=== PATIENT | female | born 1930 | race Caucasian/White ===

== ENCOUNTER 2017-09-26 13:24 | Observation (INO) | payer OTHER ==
[~2017-09-26] VITALS: Ht 160 cm; Wt 50.4 kg
--- NOTE | 2017-09-26 15:01 | DIAGNOSTIC IMAGING REPORT ---
CHEST ONE VIEW PORTABLE CLINICAL HISTORY: Altered mental status. Weakness. COMPARISON STUDY: No previous studies for comparison. FINDINGS: Lung volumes are normal. There is no pneumothorax or pleural effusion. Pulmonary vascularity is normal. Linear bibasilar opacities suggest subsegmental atelectasis. There is no dilatation to suggest pneumonia. Cardiomediastinal silhouette is unremarkable. IMPRESSION: No acute cardiopulmonary findings. Electronically signed by: Axel Vargas M.D. 09/26/2017 3:00 PM Dictated Date/Time: 09/26/2017 2:59 PM
[2017-09-26 15:10] LABS: BASO % 0.5 %; BASO ABS # 0.03 K/uL (0-0.2); COMPLETE YES; EOS % 0.6 %; HEMATOCRIT 32.6 % (37-47); IG% 0.2 %; LYMPH % 26.7 %; LYMPH ABS # 1.69 K/uL (1.2-3.4); MEAN CORPUSCULAR HGB CONC 33.7 g/dl (32-36); MEAN PLATELET VOLUME 8.6 fL (7.4-10.4); MONO % 9.6 %; NEUT % 62.4 %; PLATELET COUNT 270 K/uL (130-400); RED BLOOD COUNT 3.79 M/uL (4.2-5.4); WHITE BLOOD COUNT 6.34 K/uL (4.8-10.8)
[2017-09-26 15:20] LABS: PARTIAL THROMBOPLASTIN RATIO 0.9; PROTHROMBIN TIME (PATIENT) 10.6 SECONDS (9.0-12.0)
[2017-09-26 15:31] LABS: ALT/SGPT 36 U/L (12-78); BLOOD UREA NITROGEN 14 mg/dl (7-18); BUN/CREATININE RATIO 22.2 (10-20); CALCIUM 9.1 mg/dl (8.5-10.1); CARBON DIOXIDE 26 mmol/L (21-32); CHLORIDE 96 mmol/L (98-107); CREATININE 0.64 mg/dl (0.60-1.20); GLUCOSE 99 mg/dl (70-99); POTASSIUM 4.1 mmol/L (3.5-5.1); SODIUM 130 mmol/L (136-145)
[2017-09-26 15:36] LABS: MANUAL MICROSCOPIC REQUIRED? NO; REVIEW REQ? YES; URINE APPEARANCE CLEAR (CLEAR); URINE BILIRUBIN NEG (NEG); URINE COLOR YELLOW; URINE NITRITE NEG (NEG); URINE SPECIFIC GRAVITY 1.018 (1.000-1.030); UROBILINOGEN NEG (NEG); ZZUR CULT IF INDIC CLEAN CATCH YES
[2017-09-26 15:41] LABS: ACETAMINOPHEN < 2 ug/ml (10-30)
[2017-09-26 15:52] LABS: ALKALINE PHOSPHATASE 87 U/L (45-117); AST/SGOT 20 U/L (15-37); CKMB/CK RATIO 3.1 (0-3.0)
[2017-09-26] MEDS ORDERED: ACET325T96 PO (16:29)
[2017-09-26] MEDS ORDERED: ALUMSUS PO (16:29)
[2017-09-26] MEDS ORDERED: OXCA150T2 PO (16:29)
[2017-09-26] MEDS ORDERED: ATOR10TA82 PO (16:29)
[2017-09-26] MEDS ORDERED: LISI-729 PO (16:29)
[2017-09-26] MEDS ORDERED: MOML PO (16:29)
[2017-09-26] MEDS ORDERED: METH1TAB3 PO (16:29)
[2017-09-26] MEDS ORDERED: LORAZEPAM 2 MG/ML 1 ML VIAL IV STA (17:24)
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
[2017-09-26] MEDS ORDERED: ONDANSETRON INJ 2 MG/ML 2 ML VIAL IV PRN (18:00)
[2017-09-26] MEDS ORDERED: ACETAMINOPHEN 325 MG TAB PO PRN (18:00)
[2017-09-26] MEDS ORDERED: ASPIRIN 325 MG ECTAB PO STA (18:19)
[2017-09-26 18:38] VITALS: BP 134/58; PULSE 73; TEMP 36.8; O2SAT 97
[2017-09-26 18:43] VITALS: BP 134/58; PULSE 73; TEMP 36.8; O2SAT 97; Ht 160 cm; Wt 50.4 kg
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
[2017-09-26] MEDS: OXCARBAZEPINE 150 MG TAB PO SCH (20:57)
[2017-09-26] MEDS ORDERED: IV FLUIDS COMPLETED PRN (21:15)
[2017-09-26 22:56] VITALS: BP 111/57; PULSE 68; TEMP 36.7; O2SAT 97
[2017-09-27] VITALS (7 sets, daily range): BP systolic 107–168; BP diastolic 54–67; PULSE 64–72; TEMP 36.3–36.7; O2SAT 93–98
[2017-09-27 05:46] LABS: HEMATOCRIT 32.1 % (37-47); MEAN CELL VOLUME 87.5 fL (80-100); MEAN CORPUSCULAR HEMOGLOBIN 28.6 pg (25-34); MEAN CORPUSCULAR HGB CONC 32.7 g/dl (32-36); MEAN PLATELET VOLUME 8.5 fL (7.4-10.4); PLATELET COUNT 238 K/uL (130-400); RED BLOOD COUNT 3.67 M/uL (4.2-5.4); WHITE BLOOD COUNT 5.73 K/uL (4.8-10.8)
[2017-09-27 06:19] LABS: BUN/CREATININE RATIO 21.5 (10-20); CREATININE 0.76 mg/dl (0.60-1.20); POTASSIUM 4.3 mmol/L (3.5-5.1)
[2017-09-27] MEDS: ATORVASTATIN 10 MG TAB PO SCH (11:11)
[2017-09-27] MEDS: ASPIRIN 81 MG ECTAB PO SCH (11:11)
[2017-09-27] MEDS: OXCARBAZEPINE 150 MG TAB PO SCH ×2 (11:11→21:36)
[2017-09-27] MEDS: LISINOPRIL 5 MG TAB PO SCH (11:12)
[2017-09-27] MEDS: ENOXAPARIN 40 MG/0.4 ML SYR SQ SCH (11:13)
--- NOTE | 2017-09-27 12:12 | Hospitalist Progress Note ---
Hospitalist Progress Note Date of Service Sep 27, 2017. Subjective Patient seen and examined. Much more alert and oriented today. Reports, "I was very angry last night and did not want to stay here." No complaints. Objective Vital Signs Date Time Temp Pulse Resp B/P (MAP) Pulse Ox O2 Delivery O2 Flow Rate FiO2 09/27/17 11:35 36.6 69 20 132/66 (88) 97 09/27/17 08:00 95 Room Air 09/27/17 06:58 36.5 68 20 136/64 (88) 95 Room Air 09/27/17 05:28 36.7 64 16 107/54 (71) 93 Room Air 09/27/17 04:00 Room Air 09/26/17 23:55 Room Air 09/26/17 22:56 36.7 68 16 111/57 (75) 97 Room Air 09/26/17 18:43 36.8 73 18 134/58 97 Room Air 09/26/17 18:38 36.8 73 18 134/58 (83) 97 Room Air 09/26/17 17:43 69 20 168/86 95 Room Air 09/26/17 16:55 99 20 176/83 95 Room Air 09/26/17 14:38 86 20 153/90 96 Room Air 09/26/17 13:47 Room Air 09/26/17 13:41 79 09/26/17 13:39 36.9 78 20 140/84 97 Room Air Physical Exam General Appearance: WD/WN, no apparent distress Respiratory/Chest: lungs clear, normal breath sounds, no respiratory distress Cardiovascular: regular rate, rhythm, no edema Abdomen: normal bowel sounds, non tender, soft Neurologic/Psychiatric: no motor/sensory deficits, alert, oriented x 3 Skin: normal color, warm/dry Laboratory Results Item Value Date Time Troponin I 0.169 ng/ml *H 09/26/17 1454 Troponin I 0.498 ng/ml *H 09/26/172000 Troponin I 0.386 ng/ml *H 09/27/17 0152 Sodium Level 129 mmol/L L 09/27/17 0522 Blood Urea Nitrogen 16 mg/dl 09/27/17 0522 Creatinine 0.76 mg/dl 09/27/17 0522 White Blood Count 5.73 K/uL 09/27/17 0522 Hemoglobin 10.5 g/dL L 09/27/17521 Hematocrit 32.1 % L 09/27/17521 Platelet Count 238 K/uL 09/27/17521 Assessment and Plan ELEVATED TROPONIN - patient presenting from [facility] for evaluation of manic and aggressive behavior; incidentally found to have a mildly elevated troponin - no reports of chest pain (however consider patient poor historian): EKG without acute ST changes - consider stress induced due to patient's extreme mood swings, anxiety, aggression - received full dose ASA; now on 81mg daily; continue statin - trop 0.169 -> 0.498 -> 0.386 - echo pending - cardio consulted, awaiting recommendations DELUSIONS, AGGRESSIONS, HX OF DEMENTIA - much improvement in mood today - recent admission to [facility] and was placed on Trileptal - was on Aricept for a few days however was discontinued by Dr. Betancur (patient's neurologist) - mental health consult HTN - BP controlled, continue Lisinopril HYPONATREMIA - mild, likely due to Trileptal - continue to monitor for now - consider fluid restriction DYSLIPIDEMIA - continue statin DVT PROPHYLAXIS - SCDs due to bleeding risk / injury from patient's aggressive behavior CODE STATUS - Patient is a DNR as per half-way documentation. DISPO - pending - awaiting mental health recommendations - return to [facility] vs. inpatient geriatric psych
--- NOTE | 2017-09-27 13:30 | Psychiatric Consultation ---
Consultation Date of Consultation Sep 27, 2017. Identifying Data Belkys Duran is an 87-year-old woman who was brought to the ED after having a behavioral episode at the halfway, [facility]. We are consulted to evaluate dementia and depression. Information is gathered from the patient, the electronic medical record, and daughter Sheela by phone. Chief Complaint "I get confused on things". History of Present Illness The patient is a 87-year-old woman who is generally quite healthy. She has lived in her own home until the middle of August. 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 The family had noticed that mother's memory had been declining, calling them sometimes 3 times a day not having remembered that she already called. Their mother would get confused about whether or not she worked and what her schedule was. The day after mother called to say that she was retiring, the patient evidently did not remember saying that and went to work. Her employer then called the daughter Sheela to say mother was at work, was appearing confused, not remembering that she retired. Sheela went to the patient's home then to talk with her, realized that she was confused, forgetting many details. She did not feel like she could leave her alone and so called can help for some assistance. They sent a mobile worker out to the home which only agitated the patient. It sounds as if the patient got paranoid, that the family and this galley worker were making up lies about her. The patient became aggressive reaching out to grab papers and the galley worker. This ultimately resulted in a 302 petition, and a police escort to [facility]. From there the patient was sent to [facility] where she stayed for a week. They placed her on Trileptal and said that she demonstrated no more aggressive behaviors while she was there. The patient was then sent to [facility] which was the children's choice for facilities feeling that she could have her own apartment and some freedom to come and go. Sheela says that her mother has always had trouble with change, and is very rigid and obsessive in her own thinking. She describes her mother as judgmental of others especially others with medical conditions in view of the fact that Belkys herself has been very healthy all of her life. The patient was clearly unhappy in the move, making many complaints about the environment. The daughters were worried she would try to elope which would result in the patient not being allowed to return to [facility]. Sheela went to visit her mother yesterday. Her mother was anxious, asking to leave. The patient then stiffened her entire body, grabbing at her pants, banging her head on the back of the chair saying that she wanted to . She would not be consoled. At that point she was brought to our emergency room. Sheela also notes that the patient has seen Dr. Andrews in the past, diagnosed with dementia, recently recommended to start Aricept which she did for only a very brief period of time. Over the years, Sheela says that mother has been recommended to try antidepressants however she never took them but did use Ativan and Valium at times. At the time I see the patient she is seated in her bed. She is alert and cooperative with the interview. She is well groomed and attentive. She has trouble describing a timeline of events. Generally she is able to say that she retired recently, that her children had been concerned about her living alone and so she agreed to go to [facility] where she is now desperately unhappy. The patient has very poor memory for going to [facility] or any behaviors that may have led to that. The focus of her conversation today has to do with the fact that she has led a full and active life, living independently even after her 17 years ago. She acknowledges she has memory problems but feels that there was a dramatic switch when she went to [facility] where she is now surrounded by people who are infirm, whom she does not want to be around. She is able to say that it was this distress that led her to her behavioral decompensation yesterday with her daughter. Belkys says she felt that if she had to live in these circumstances the rest of her days that she would rather be , wishing the Lord to take her. She denies having any active suicidal thoughts plan or intent. The patient herself says that she denies suicidal thinking. She reports good sleep. She reports good appetite although the daughter said that when he went into her home, her refrigerator had moldy food on it and they report a recent 5 pound weight loss. The patient herself denies any auditory or visual hallucinations. Daughter Sheela reports a paranoid theme. Sheela also notes that she has observed her mother to have panic attacks in the past. She has always had some odd behaviors, including taking copious notes and at time of admission, was found to have notes in her socks. Past Psychiatric History Current OP Treatment: no current treatment Prior OP Treatment: no prior treatment Prior Psych Hospitalizations: none Access to a Gun: No Suicide Attempts: No Past Medication Trials Ativan, Valium, multiple antidepressants that she did not take Past Medical/Surgical History History of Concussion/Seizure: No (1) Dyslipidemia (2) HTN (hypertension) (3) Dementia Allergies Allergies: Coded Allergies: Penicillins (Verified Allergy, Unknown, UNKNOWN, 09/26/17) Home Medications Scheduled Atorvastatin (Lipitor), 10 MG PO DAILY Lisinopril (Prinivil), 5 MG PO DAILY Methenamine Mandelate (Methenamine Mandelate), 1 GM PO DAILY Oxcarbazepine (Trileptal), 150 MG PO BID Scheduled PRN Acetaminophen Tab (Tylenol), 650 MG PO Q4 PRN for Pain or Fever Alum & Mag Hydrox-Simethicone (Mi-Acid), 30 ML PO Q4 PRN for Nausea Magnesium Hydroxide (Milk Of Magnesia), 30 ML PO DAILY PRN for Constipation Family History History of Suicide: No History of Substance Abuse: No Psychiatric History: No Brother with Parkinson's disease Alcohol Use Alcohol Use In Past 12 Months: No Smoking Use Smoking Status: Never Smoker Substance History None Personal History Lives in: [facility] Relationship History: Children: 2 daughters and 1 son Legal History: none Psychological Trauma History: Denies Hx Traumatic Event Review of Systems Constitutional: other (admits to poor memory) Eyes: denies: no symptoms, as stated in HPI, eye pain, tearing, itching, redness, discharge, double vision, visual changes, blurred vision, photophobia, other ENT: denies: no symptoms reported, see HPI, ear pain, ear discharge, loss of hearing, tinnitus, nasal pain, nasal congestion, rhinorrhea, epistaxis, sore throat, stidor, throat swelling, mouth pain, mouth swelling, dental pain, gum swelling, other Cardiovascular: denies: no symptoms reported, see HPI, chest pain, chest tightness, chest pressure, diaphoresis, palpitations, syncope, other Respiratory: denies: no symptoms reported, see HPI, cough, orthopnea, short of breath, stridor, wheezing, sputum production, cyanosis, BARRON, PND, other Gastrointestinal: denies no symptoms reported, denies see HPI, denies abdominal pain, denies constipation, denies diarrhea, denies nausea, denies vomiting, denies other Genitourinary - Female: denies: no symptoms, see HPI, rash, amenorrhea, dysmenorrhea, menorrhagia, metrorrhagia, , vaginal bleeding, vaginal itching, vaginal discharge, vulvadynia, other Musculoskeletal: denies no symptoms reported, denies see HPI, denies back pain , denies gout, denies joint pain, denies joint swelling, denies muscle pain, denies muscle stiffness, denies neck pain, denies other Integumentary: denies no symptoms reported, denies see HPI, denies change in color, denies change in hair/nails, denies dryness, denies lesions, denies lumps , denies rash, denies other Neurologic: denies: no symptoms, see HPI, headache, numbness, paresthesias, pre -existing deficit, seizure, tingling, tremors, general weakness, tics, focal weakness, vertigo, lethargy, memory loss, dizziness, other Endocrine: denies: no symptoms, as stated in HPI, cold intolerance, heat intolerance, hair changes, goiter, polydipsia, polyuria, skin changes, other Hematologic / Lymphatic: denies: no symptoms, as stated in HPI, abnormal clotting, adenopathy, anemia, easy bleeding, easy bruising, gums bleeding, petechiae, other Examination Physical Examination As per Blanca ABBOTT Vital Signs Vital Signs Past 12 Hours Date Time Temp Pulse Resp B/P (MAP) Pulse Ox O2 Delivery O2 Flow Rate FiO2 09/27/17 11:35 36.6 69 20 132/66 (88) 97 09/27/17 08:00 95 Room Air 09/27/17 06:58 36.5 68 20 136/64 (88) 95 Room Air 09/27/17 05:28 36.7 64 16 107/54 (71) 93 Room Air 09/27/17 04:00 Room Air Laboratory Results Last 24 Hours Test 09/26/17 14:54 09/26/17 15:15 09/26/17 15:39 09/26/17 20:01 White Blood Count 6.34 K/uL Red Blood Count 3.79 M/uL Hemoglobin 11.0 g/dL Hematocrit 32.6 % Mean Corpuscular Volume 86.0 fL Mean Corpuscular Hemoglobin 29.0 pg Mean Corpuscular Hemoglobin Concent 33.7 g/dl Platelet Count 270 K/uL Mean Platelet Volume 8.6 fL Neutrophils (%) (Auto) 62.4 % Lymphocytes (%) (Auto) 26.7 % Monocytes (%) (Auto) 9.6 % Eosinophils (%) (Auto) 0.6 % Basophils (%) (Auto) 0.5 % Neutrophils # (Auto) 3.96 K/uL Lymphocytes # (Auto) 1.69 K/uL Monocytes # (Auto) 0.61 K/uL Eosinophils # (Auto) 0.04 K/uL Basophils # (Auto) 0.03 K/uL RDW Standard Deviation 43.5 fL RDW Coefficient of Variation 13.7 % Immature Granulocyte % (Auto) 0.2 % Immature Granulocyte # (Auto) 0.01 K/uL Prothrombin Time 10.6 SECONDS Prothromb Time International Ratio 1.0 Activated Partial Thromboplast Time 23.3 SECONDS Partial Thromboplastin Ratio 0.9 Sodium Level 130 mmol/L Potassium Level 4.1 mmol/L Chloride Level 96 mmol/L Carbon Dioxide Level 26 mmol/L Anion Gap 8.0 mmol/L Blood Urea Nitrogen 14 mg/dl Creatinine 0.64 mg/dl Estimated GFR () 93.6 Estimated GFR (Non- 80.8 BUN/Creatinine Ratio 22.2 Random Glucose 99 mg/dl Calcium Level 9.1 mg/dl Magnesium Level 2.0 mg/dl Total Bilirubin 0.5 mg/dl Direct Bilirubin 0.2 mg/dl Aspartate Amino Transf (AST/SGOT) 20 U/L Alanine Aminotransferase (ALT/SGPT) 36 U/L Alkaline Phosphatase 87 U/L Total Creatine Kinase 35 U/L Creatine Kinase MB 1.1 ng/ml 1.8 ng/ml Creatine Kinase MB Ratio 3.1 Troponin I 0.169 ng/ml 0.498 ng/ml Total Protein 7.0 gm/dl Albumin 3.6 gm/dl Lipase 143 U/L Thyroid Stimulating Hormone (TSH) 1.820 uIu/ml Salicylates Level < 1.7 mg/dl Acetaminophen Level < 2 ug/ml Urine Color YELLOW Urine Appearance CLEAR Urine pH 7.0 Urine Specific Robertson 1.018 Urine Protein NEG Urine Glucose (UA) NEG Urine Ketones NEG Urine Occult Blood NEG Urine Nitrite NEG Urine Bilirubin NEG Urine Urobilinogen NEG Urine Leukocyte Esterase SMALL Urine WBC (Auto) 10-30 /hpf Urine RBC (Auto) 10-30 /hpf Urine Hyaline Casts (Auto) 1-5 /lpf Urine Epithelial Cells (Auto) 10-20 /lpf Urine Bacteria (Auto) NEG Urine Yeast (Auto) Ethyl Alcohol mg/dL < 3.0 mg/dl Test 09/27/17 01:52 09/27/17 05:22 Creatine Kinase MB 1.7 ng/ml Creatine Kinase MB Ratio Troponin I 0.386 ng/ml White Blood Count 5.73 K/uL Red Blood Count 3.67 M/uL Hemoglobin 10.5 g/dL Hematocrit 32.1 % Mean Corpuscular Volume 87.5 fL Mean Corpuscular Hemoglobin 28.6 pg Mean Corpuscular Hemoglobin Concent 32.7 g/dl RDW Standard Deviation 44.7 fL RDW Coefficient of Variation 13.9 % Platelet Count 238 K/uL Mean Platelet Volume 8.5 fL Sodium Level 129 mmol/L Potassium Level 4.3 mmol/L Chloride Level 98 mmol/L Carbon Dioxide Level 30 mmol/L Anion Gap 1.0 mmol/L Blood Urea Nitrogen 16 mg/dl Creatinine 0.76 mg/dl Est Creatinine Clear Calc Drug Dose 43.9 ml/min Estimated GFR () 82.3 Estimated GFR (Non- 71.0 BUN/Creatinine Ratio 21.5 Random Glucose 82 mg/dl Calcium Level 9.0 mg/dl Mental Examination During interview pt is: cooperative (disoriented to place and month day and date) Appearance: appropriately dressed, appropriately groomed Eye contact is: good Motor behavior is: tremor (mild) Speech: normal in rate, rhythm & volume Affect: tearful, anxious Mood is: depressed, anxious Thought process: goal directed Thought content: reality based without delusions (but with memory impairment) Suicidal thought are: denied (had made statements of wanting to , wanting God to take her but denies active SI) Homicidal thoughts are: denied Hallucinations: denies auditory, denies visual Cognition: attention grossly intact, language grossly intact Intelligence estimated to be: average Insight: impaired Judgement: impaired Impression / Recommendations Impression 87-year-old woman who has been in deterioration over the course of the last several weeks. She is admitted to our facility after having a behavioral episode at [facility] in which she was poorly responsive and acting bizarrely making suicidal statements. I certainly agree she's got significant memory impairment although I'm not sure whether there is any benefit to adding Aricept or Namenda at this point given her age. Her daughter describes a lifelong pattern of anxiety and anxiety related behaviors and I do think it's worth a trial of an SSRI, Lexapro 5 mg daily, which the patient indicated she would be willing to try. Her periods of agitation are not consistent and today is quite cooperative with islands of intact cognition. At her age it would like to avoid starting an atypical antipsychotic given the potential side effects. Ideally, the patient would be allowed an opportunity to remain in her own home with 24 7 support, however daughter hSeela says this is not financially possible. Sheela is concerned that the patient will require a higher level of care, specifically locked memory care unit, and I have suggested to her that she talk with social service about that. I don't think we can dismiss the patient's reports about her unhappiness in a facility where there are lots of sick people around her that she cannot relate to. Unfortunately there is not much we can do to change that and the patient may need more time to acclimate. She is not a candidate for inpatient mental health treatment given that her primary diagnosis is that of dementia, and not a primary mental illness. Recommendations (1) neurocognitive disorder with behavioral disturbance 09/27 - start Lexapro 5 mg daily to target mood and chronic anxiety -Behavior is not consistently aggressive or bizarre and so I do not recommend starting an atypical antipsychotic at this point given her age and potential side effects - She is not a candidate for inpatient mental health treatment given her primary diagnosis of dementia Has been reviewed with Dr. Sulma Irwin
--- NOTE | 2017-09-27 14:27 | CARDIOLOGY CONSULTATION ---
DATE OF CONSULTATION: 09/27/2017 DATE OF CONSULTATION: 09/27/2017 REFERRING PHYSICIAN: Dr. Mckenzie Galaviz. REASON FOR CONSULTATION: Elevated troponin. CHIEF COMPLAINT ON ADMISSION: Mental health evaluation. HISTORY OF PRESENT ILLNESS: Ms. Duran is an 87-year-old female who is a poor historian. She was sent to the Emergency Department from [facility] due to worsening anxiety and depression over the past 3 months. The patient states I "had a fit" last night. She states she left things build up and then eventually she became quite angry and frustrated. There is a chart history of worsening confusion. The patient seems to be confused as to where she resides at this time. She believes she is still living at home. 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 She was recently diagnosed with Alzheimer dementia. Started on Aricept a few days ago. Denies history of coronary artery disease, congestive heart failure, hypertension, diabetes, or dysrhythmia. Denies any exertional chest pain or unusual shortness of breath. No orthopnea, PND, lower extremity edema. Denies palpitations, lightheadedness, dizziness, syncope or near syncope. REVIEW OF SYSTEMS: The pertinent positive noted above, a comprehensive 10-system review is otherwise negative. PAST MEDICAL HISTORY: 1. Alzheimer dementia. 2. Hypertension. 3. Dyslipidemia. PAST SURGICAL HISTORY: None on record, patient is a poor historian. SOCIAL HISTORY: Lifelong nonsmoker. She is and resides at [facility]. FAMILY HISTORY: Negative for premature CAD or sudden cardiac ; however, noncontributory given patient's advanced age. ALLERGIES: PENICILLIN. OUTPATIENT MEDICATIONS: 1. Lipitor 10 mg daily. 2. Prinivil 5 mg daily. 3. Methenamine mandelate 1 gram daily. 4. Trileptal 150 mg twice daily. 5. Tylenol as needed. 6. Magnesium hydroxide 30 mL as needed. ECG on presentation demonstrates sinus rhythm, no significant ST changes. LABORATORY DATA: White blood cell count 5.73, hemoglobin is 10.5, platelet count is 238. Sodium 129, potassium 4.3, chloride is 98, CO2 is 30, BUN is 16, creatinine is 0.76. Troponin initially 0.169. Peak troponin 0.498 with a repeat troponin 0.386, CK and CK-MB are not elevated. TSH 1.820. Alcohol level undetectable, salicylate and Tylenol levels are undetectable. Urinalysis demonstrates small leukocyte esterase. Urine culture demonstrating pinpoint growth currently being reincubated. Chest x-ray on admission demonstrates no acute cardiopulmonary findings. Telemetry demonstrates sinus rhythm, no dysrhythmias. PHYSICAL EXAMINATION: VITAL SIGNS: Temperature is 36.6 degrees centigrade, pulse 69 beats per minute and regular, respiratory rate is 20 breaths per minute,SaO2 is 97% on room air. GENERAL: NAD, awake, alert, she is a poor historian. She is oriented to person and time. HEAD, EYES, EARS, NOSE, AND THROAT: Her mucous membranes are moist. No scleral icterus. Conjunctivae pink. NECK: Supple without JVD or HJR. No carotid bruit. HEART: Regular with a normal S1 and S2. There is no murmur, rub, or gallop. LUNGS: Clear without rales, rhonchi or wheeze. ABDOMEN: Soft and nontender. There is no rebound or guarding. Normal bowel sounds. EXTREMITIES: Warm and dry without clubbing, cyanosis, or edema. NEUROLOGIC EXAMINATION: Demonstrates no focal motor deficit. FINAL IMPRESSION: 1. Mildly elevated troponin of unclear significance, possibly related to stress/agitation with mildly elevated blood pressures on admission. ECG without ischemic changes. Resting 2D transthoracic echo pending. No evidence of dysrhythmia on telemetry. 2. Hypertension -- controlled with low dose lisinopril. 3. Alzheimer dementia. 4. Hyponatremia. 5. Dyslipidemia. PLAN AND RECOMMENDATIONS: Recommend conservative medical treatment at this time. The patient without anginal symptoms. Continue aspirin, statin, low dose DELORIS inhibitor. We will monitor telemetry during hospitalization. 2D transthoracic echo will be reviewed when available. Will continue to follow along with you during hospitalization. Thank you for allowing me to participate in the care of your patient. DREW
--- NOTE | 2017-09-27 15:32 | ECHOCARDIOGRAM REPORT ---
*NOTICE TO RECEIVING REPUBLICAN AGENCY This information is strictly Confidential and protected under [place] law. [place] law prohibits you from making any further disclosure of this information unless further disclosure is expressly permitted by the written consent of the person to whom it pertains or is authorized by law. A general authorization for the release of medical or other information is not sufficient for this purpose. Hospital accepts no responsibility if the information is made available to any other person, INCLUDING THE PATIENT. Interpretation Summary * Name: YOSEF HART Study Date: 09/27/2017 10:23 AM BP: 107/54 mmHg * Patient Location: [facility]\S\N283\S\2 HR: 69 * : 1930 (M/d/yyyy) Gender: Female Height: 60 in * Age: 87 yrs Ethnicity: CA Weight: 215 lb * Ordering Physician: Izabella Murrieta * Referring Physician: Self, Referred * Performed By: Magui Faust RCS * * Reason For Study: ELEVATED TROPONIN * BSA: 1.9 m2 * The study was technically adequate. * There is no comparison study available. * -- Conclusions -- * The left ventricle is hyperdynamic. * Ejection Fraction = >70 % * The left ventricular wall motion is normal. * Aortic valve sclerosis mild, without significant aortic valvular stenosis. * There is trace mitral regurgitation. * Grade I diastolic dysfunction, (abnormal relaxation pattern). * . Procedure Details * A complete two-dimensional transthoracic echocardiogram was performed (2D, M-mode, Doppler and color flow Doppler). Left Ventricle * The left ventricle is normal in size. * The left ventricular apex is not well visualized. * There is normal left ventricular wall thickness. * Ejection Fraction = >70 %. * The left ventricle is hyperdynamic. * The left ventricular wall motion is normal. Right Ventricle * The right ventricle is normal size. * The right ventricular systolic function is normal as assessed by tricuspid annular plane systolic excursion (TAPSE) (normal >1.5 cm). Atria * The left atrial size is normal. * Right atrial size is normal. * There is no evidence of atrial septal defect, but resolution does not allow assessment for a patent foramen ovale. Mitral Valve * The posterior mitral valve leaflet is mildly calcified. * There is mild mitral annular calcification. * There is no mitral valve stenosis. * There is trace mitral regurgitation. Tricuspid Valve * The tricuspid valve is normal. * There is no tricuspid stenosis. * Significant tricuspid regurgitation is absent. Aortic Valve * The aortic valve is trileaflet. * Aortic valve sclerosis mild, without significant aortic valvular stenosis. * Aortic stenosis is absent. * There is no significant aortic regurgitation. Pulmonic Valve * The pulmonary valve is not well seen, but the Doppler examination is normal without significant regurgitation or stenosis. Great Vessels * The aortic root is normal size. Pericardium/Pleural * There is no pericardial effusion. Great Vessels * Normal inferior vena cava diameter and respiratory variation suggests normal central venous pressure. Left Ventricular Diastolic Function * Grade I diastolic dysfunction, (abnormal relaxation pattern). MMode 2D Measurements and Calculations IVSd 1.0 cm IVSs 1.6 cm LVIDd 3.9 cm LVIDs 2.8 cm LVPWd 1.1 cm LVPWs 1.3 cm IVS/LVPW 0.94 FS 29.2 % EDV(Teich) 66.0 ml ESV(Teich) 28.6 ml EF(Teich) 56.7 % EDV(cubed) 59.4 ml ESV(cubed) 21.1 ml EF(cubed) 64.5 % % IVS thick 56.2 % % LVPW thick 15.1 % LV mass(C)d 137.1 grams LV mass(C)dI 71.2 grams/m\S\2 LV mass(C)s 136.0 grams LV mass(C)sI 70.7 grams/m\S\2 SV(Teich) 37.4 ml SI(Teich) 19.4 ml/m\S\2 SV(cubed) 38.3 ml SI(cubed) 19.9 ml/m\S\2 Ao root diam 2.9 cm Ao root area 6.5 cm\S\2 ACS 1.9 cm LA dimension 4.1 cm LA/Ao 1.4 LVOT diam 1.7 cm LVOT area 2.2 cm\S\2 LVAd ap4 23.3 cm\S\2 LVLd ap4 6.7 cm EDV(MOD-sp4) 65.1 ml EDV(sp4-el) 68.5 ml LVAs ap4 9.6 cm\S\2 LVLs ap4 5.1 cm ESV(MOD-sp4) 16.4 ml ESV(sp4-el) 15.4 ml EF(MOD-sp4) 74.8 % EF(sp4-el) 77.5 % LVAd ap2 20.6 cm\S\2 LVLd ap2 6.1 cm EDV(MOD-sp2) 57.4 ml EDV(sp2-el) 58.5 ml LVAs ap2 10.7 cm\S\2 LVLs ap2 5.4 cm ESV(MOD-sp2) 19.1 ml ESV(sp2-el) 18.0 ml EF(MOD-sp2) 66.7 % EF(sp2-el) 69.2 % LVLd %diff -9.14 % EDV(MOD-bp) 64.0 ml LVLs %diff 6.1 % ESV(MOD-bp) 17.6 ml EF(MOD-bp) 72.4 % SV(MOD-sp4) 48.7 ml SI(MOD-sp4) 25.3 ml/m\S\2 SV(MOD-sp2) 38.3 ml SI(MOD-sp2) 19.9 ml/m\S\2 SV(MOD-bp) 46.3 ml SI(MOD-bp) 24.1 ml/m\S\2 SV(sp4-el) 53.1 ml SI(sp4-el) 27.6 ml/m\S\2 SV(sp2-el) 40.5 ml SI(sp2-el) 21.0 ml/m\S\2 Doppler Measurements and Calculations MV E max dahlia 77.6 cm/sec MV A max dahlia 98.1 cm/sec MV E/A 0.79 MV P1/2t max dahlia 75.9 cm/sec MV P1/2t 74.6 msec MVA(P1/2t) 2.9 cm\S\2 MV dec slope 298.2 cm/sec\S\2 MV dec time 0.23 sec Ao V2 max 126.0 cm/sec Ao max PG 6.3 mmHg Ao max PG (full) 1.1 mmHg PRESTON(V,A) 2.0 cm\S\2 PRESTON(V,D) 2.0 cm\S\2 LV V1 max PG 5.2 mmHg LV V1 max 114.3 cm/sec PA V2 max 115.6 cm/sec PA max PG 5.3 mmHg TR max dahlia 223.5 cm/sec
[2017-09-28] VITALS (8 sets, daily range): BP systolic 104–145; BP diastolic 52–67; PULSE 62–70; TEMP 36.5–36.9; O2SAT 93–96
[2017-09-28 06:23] LABS: BUN/CREATININE RATIO 23.1 (10-20); CALCIUM 8.5 mg/dl (8.5-10.1); CREATININE 0.87 mg/dl (0.60-1.20); POTASSIUM 4.6 mmol/L (3.5-5.1)
[2017-09-28] MEDS: ENOXAPARIN 40 MG/0.4 ML SYR SQ SCH (07:43)
[2017-09-28] MEDS: OXCARBAZEPINE 150 MG TAB PO SCH ×2 (07:43→21:44)
[2017-09-28] MEDS: ATORVASTATIN 10 MG TAB PO SCH (07:44)
[2017-09-28] MEDS: ESCITALOPRAM OXALATE 10 MG TAB PO SCH (07:44)
[2017-09-28] MEDS: LISINOPRIL 5 MG TAB PO SCH (07:44)
[2017-09-28] MEDS: ASPIRIN 81 MG ECTAB PO SCH (07:44)
--- NOTE | 2017-09-28 19:51 | Progress Note ---
Medicine Progress Note Date & Time of Visit: Sep 28, 2017 at 19:35. Subjective Pt was seen and examined Lying in bed with no distress Pt said that she remembers everything except that one day when she was very agitated Pt said that she woke up and found herself in the hospital Denies any hallucination, palpitation, dizziness and SOB Objective Last 8 Hrs Date Time Temp Pulse Resp B/P (MAP) Pulse Ox O2 Delivery O2 Flow Rate FiO2 09/28/17 16:00 93 Room Air 09/28/17 15:46 36.9 70 18 144/66 (92) 93 Room Air 09/28/17 12:26 36.5 69 16 145/67 (93) 96 Room Air 09/28/17 12:00 Room Air Physical Exam: General- No acute distress Head- atraumatic Eyes- PERRL, EOMI ENT- oropharynx clear Neck- supple, no JVD Lungs- No wheezing Heart- regular rhythm Abdomen- normal bowel sounds, soft Extremities-no calf tenderness Neuro- alert, oriented x 3; PERRL, EOMI Skin- warm & dry Laboratory Results: Last 24 Hours Test 09/28/17 05:36 Sodium Level 128 mmol/L Potassium Level 4.6 mmol/L Chloride Level 94 mmol/L Carbon Dioxide Level 28 mmol/L Anion Gap 6.0 mmol/L Blood Urea Nitrogen 20 mg/dl Creatinine 0.87 mg/dl Est Creatinine Clear Calc Drug Dose 37.9 ml/min Estimated GFR () 69.9 Estimated GFR (Non- 60.3 BUN/Creatinine Ratio 23.1 Random Glucose 85 mg/dl Calcium Level 8.5 mg/dl Assessment & Plan ELEVATED TROPONIN Elevated troponin on admission NO ischemic changes on EKG Tropon 0.169 -> 0.498 -> 0.386 Cardiology on board recommended conservative management Continue asa and statin ECHO showed * The left ventricle is hyperdynamic. * Ejection Fraction = >70 % * The left ventricular wall motion is normal. * Aortic valve sclerosis mild, without significant aortic valvular stenosis. * There is trace mitral regurgitation. * Grade I diastolic dysfunction, (abnormal relaxation pattern). DELUSIONS, AGGRESSIONS, HX OF DEMENTIA Clinically improved continue Trileptal Lexapro 5mg starting yesterday by psych case discussed with Psych that recommended to continue Lexapro 5mg can be titrated by provider at [facility] HTN BP controlled Continue Lisinopril HYPONATREMIA likely due to Trileptal Continue to monitor Consider fluid restriction DYSLIPIDEMIA On statin DVT PROPHYLAXIS On SCDs CODE STATUS DNR DISPOSITION Plan to go back to [facility] tomorrow Consultants: cardio psych Current Inpatient Medications: Current Inpatient Medications Medications (Trade) Dose Ordered Sig/Portia Route Start Time Stop Time Status Last Admin Dose Admin Acetaminophen (Tylenol Tab) 650 mg Q4H PRN PO 09/26/17 18:00 10/26/17 17:59 Ondansetron HCl (Zofran Inj) 4 mg Q6H PRN IV 09/26/17 18:00 10/26/17 17:59 Aspirin (Ecotrin Tab) 81 mg QAM PO 09/27/17 09:00 10/27/17 08:59 09/28/17 07:44 81 MG Atorvastatin Calcium (Lipitor Tab) 10 mg DAILY PO 09/27/17 09:00 10/27/17 08:59 09/28/17 07:44 10 MG Lisinopril (Zestril Tab) 5 mg DAILY PO 09/27/17 09:00 10/27/17 08:59 09/28/17 07:44 5 MG Oxcarbazepine (Trileptal Tab) 150 mg BID PO 09/26/17 21:00 10/26/17 20:59 09/28/17 07:43 150 MG Miscellaneous (Iv Fluids Completed) 1 ea PRN PRN N/A 09/26/17 21:15 09/26/18 21:14 Enoxaparin Sodium (Lovenox Inj) 40 mg QAM SQ 09/27/17 09:00 10/27/17 08:59 09/28/17 07:43 40 MG Escitalopram Oxalate (Lexapro Tab) 5 mg QAM PO 09/28/17 09:00 10/28/17 08:59 09/28/17 07:44 5 MG
[2017-09-28 20:28] LABS: BUN/CREATININE RATIO 21.8 (10-20); CALCIUM 8.3 mg/dl (8.5-10.1); CREATININE 0.77 mg/dl (0.60-1.20)
[2017-09-29 03:55] VITALS: BP 137/67; PULSE 59; TEMP 36.3; O2SAT 95
[2017-09-29 07:32] VITALS: BP 105/56; PULSE 62; TEMP 36.8; O2SAT 96
[2017-09-29] MEDS: OXCARBAZEPINE 150 MG TAB PO SCH (07:35)
[2017-09-29] MEDS: ATORVASTATIN 10 MG TAB PO SCH (07:36)
[2017-09-29] MEDS: LISINOPRIL 5 MG TAB PO SCH (07:36)
[2017-09-29] MEDS: ENOXAPARIN 40 MG/0.4 ML SYR SQ SCH (07:36)
[2017-09-29] MEDS: ASPIRIN 81 MG ECTAB PO SCH (07:36)
[2017-09-29] MEDS: ESCITALOPRAM OXALATE 10 MG TAB PO SCH (07:36)
[2017-09-29 09:12] LABS: BUN/CREATININE RATIO 20.4 (10-20); CALCIUM 8.4 mg/dl (8.5-10.1); CREATININE 0.74 mg/dl (0.60-1.20); POTASSIUM 4.1 mmol/L (3.5-5.1)
[2017-09-29 11:38] VITALS: BP 127/62; PULSE 64; TEMP 36.7; O2SAT 95
[2017-09-29 15:50] VITALS: BP 117/53; PULSE 63; TEMP 36.9; O2SAT 95
--- NOTE | 2017-09-29 16:22 | Progress Note ---
Medicine Progress Note Date & Time of Visit: Sep 29, 2017 at 15:57. Subjective Pt was seen and examined Lying in bed with no distress Pt said is very anxious to go home She said that she feels fine Spoke to her daughter Sheela this morning. and update provided Pt understands that she need to stay in the hospital to manage her sodium She said that she usually does not eat much but plan to eat a little more if that will improve her sodium Denies any chest pain, palpitation, dizziness and SOB Objective Last 8 Hrs Date Time Temp Pulse Resp B/P (MAP) Pulse Ox O2 Delivery O2 Flow Rate FiO2 09/29/17 12:00 Room Air 09/29/17 11:38 36.7 64 18 127/62 (83) 95 Room Air 09/29/17 08:00 Room Air Physical Exam: General- No acute distress Head- atraumatic Eyes- PERRL, EOMI ENT- oropharynx clear Neck- supple, no JVD Lungs- No wheezing Heart- regular rhythm Abdomen- normal bowel sounds, soft Extremities-no calf tenderness Neuro- alert, oriented, PERRL, EOMI Skin- warm & dry Laboratory Results: Last 24 Hours Test 09/28/17 20:00 09/29/17 08:21 09/29/17 09:29 09/29/17 09:45 Sodium Level 123 mmol/L 121 mmol/L Potassium Level 4.0 mmol/L 4.1 mmol/L Chloride Level 91 mmol/L 91 mmol/L Carbon Dioxide Level 24 mmol/L 23 mmol/L Anion Gap 8.0 mmol/L 7.0 mmol/L Blood Urea Nitrogen 17 mg/dl 15 mg/dl Creatinine 0.77 mg/dl 0.74 mg/dl Est Creatinine Clear Calc Drug Dose 42.8 ml/min 45.1 ml/min Estimated GFR () 81.0 85.0 Estimated GFR (Non- 69.9 73.4 BUN/Creatinine Ratio 21.8 20.4 Random Glucose 108 mg/dl 118 mg/dl Calcium Level 8.3 mg/dl 8.4 mg/dl Osmolality 255 mOsm/kg Urine Osmolality 667 mOms/kg Assessment & Plan ELEVATED TROPONIN Elevated troponin on admission NO ischemic changes on EKG Tropon 0.169 -> 0.498 -> 0.386 Cardiology on board recommended conservative management Continue asa and statin Stable ECHO showed * The left ventricle is hyperdynamic. * Ejection Fraction = >70 % * The left ventricular wall motion is normal. * Aortic valve sclerosis mild, without significant aortic valvular stenosis. * There is trace mitral regurgitation. * Grade I diastolic dysfunction, (abnormal relaxation pattern). DELUSIONS, AGGRESSIONS, HX OF DEMENTIA Clinically improved Lexapro 5mg starting yesterday by psych case discussed with Psych that recommended to continue Lexapro 5mg can be titrated by provider at [facility] if needed OK with psych to d/c Trileptal due to hyponatremia, no need to taper Psych does not want to start on any Benzo due to her age and can worsening the confusion can be titrated by provider at [facility] Daughter would like Neuro to see pt while she is in the hospital Case discussed with Dr. 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 Low Na osmolarity Psych OK to d/c Trileptal Continue to monitor Continue fluid restriction Encourage pt to eat her food Nephrology consulted Check BMP at 1999 DYSLIPIDEMIA On statin DVT PROPHYLAXIS On SCDs CODE STATUS DNR DISPOSITION Plan to go back to [facility] once medically stable Consultants: cardio psych Current Inpatient Medications: Current Inpatient Medications Medications (Trade) Dose Ordered Sig/Portia Route Start Time Stop Time Status Last Admin Dose Admin Acetaminophen (Tylenol Tab) 650 mg Q4H PRN PO 09/26/17 18:00 10/26/17 17:59 Ondansetron HCl (Zofran Inj) 4 mg Q6H PRN IV 09/26/17 18:00 10/26/17 17:59 Aspirin (Ecotrin Tab) 81 mg QAM PO 09/27/17 09:00 10/27/17 08:59 09/29/17 07:36 81 MG Atorvastatin Calcium (Lipitor Tab) 10 mg DAILY PO 09/27/17 09:00 10/27/17 08:59 09/29/17 07:36 10 MG Lisinopril (Zestril Tab) 5 mg DAILY PO 09/27/17 09:00 10/27/17 08:59 09/29/17 07:36 5 MG Oxcarbazepine (Trileptal Tab) 150 mg BID PO 09/26/17 21:00 10/26/17 20:59 09/29/17 07:35 150 MG Miscellaneous (Iv Fluids Completed) 1 ea PRN PRN N/A 09/26/17 21:15 09/26/18 21:14 Enoxaparin Sodium (Lovenox Inj) 40 mg QAM SQ 09/27/17 09:00 10/27/17 08:59 09/29/17 07:36 40 MG Escitalopram Oxalate (Lexapro Tab) 5 mg QAM PO 09/28/17 09:00 10/28/17 08:59 09/29/17 07:36 5 MG
[2017-09-29] MEDS ORDERED: NURSING VERBAL MED ORDER ONE (16:30)
[2017-09-29] MEDS ORDERED: CALCIUM CARBONATE 500 MG CHEWABLE PO ONE (16:30)
[2017-09-29] MEDS: SODIUM CHLORIDE 1 GM TAB PO SCH ×2 (17:02→20:38)
[2017-09-29] MEDS: FUROSEMIDE 20 MG TAB PO SCH (17:07)
[2017-09-29 17:14] LABS: BUN/CREATININE RATIO 23.2 (10-20); CALCIUM 8.1 mg/dl (8.5-10.1); CREATININE 0.75 mg/dl (0.60-1.20); POTASSIUM 4.3 mmol/L (3.5-5.1)
--- NOTE | 2017-09-29 18:55 | NEPHROLOGY CONSULTATION ---
DATE OF CONSULTATION: 09/29/2017 ATTENDING OF RECORD: Dr. Johnson. REASON FOR CONSULTATION: Hyponatremia. This is an 87-year-old female who presented with aggression, who has had underlying dementia and anxiety. The patient was recently started on Trileptal and had improvement in her aggression but has been having emotional changes with sadness and anxiety. The patient's sodium levels were 130 on admission and it went down to 129 and 128 and this morning down to 121. The patient was started on Lexapro on 09/27/2017 and has been on Trileptal prior to admission. Daughter in the room provided helpful history, stating that she does not drink much water at all and that they tried to encourage her to drink water, but secondary to her worsening dementia, sometimes forgets to drink. PAST MEDICAL HISTORY: Dementia, hypertension, hyperlipidemia. PAST SURGICAL HISTORY: None reported. FAMILY HISTORY: No renal disease in family. REVIEW OF SYSTEMS: The patient realizes that her memory is poor. Has no specific complaints at this time. Denies any headaches, fevers, chills, shortness of breath, chest pain, nausea, vomiting, but also states that her memory is not poor, so she is not exactly sure if what she is saying is true. All other review of systems otherwise negative; however, secondary to the poor narrator, review of systems technically unreliable. CURRENT MEDICATIONS: Lexapro 5 mg daily, aspirin 81 mg a day, Lipitor 10 mg daily, lisinopril 5 mg daily, Lovenox 40 mg daily, Trileptal 150 mg p.o. b.i.d. PHYSICAL EXAMINATION: VITAL SIGNS: Temperature 36.9, pulse 63, respiratory rate is 18, blood pressure is 117/53, satting 95% on room air. GENERAL: Awake, alert, oriented x2, with poor memory. HEENT: Mucous membranes are moist. NECK: Supple. PULMONARY: Clear to auscultation. CARDIAC: Regular rate and rhythm. ABDOMEN: Bowel sounds positive, soft, nontender. EXTREMITIES: No clubbing, cyanosis or edema. NEUROLOGICAL: Has some significant dementia but following commands. LABORATORY DATA: Sodium level is 121, potassium is 4.1, chloride is 91, bicarbonate is 23, BUN is 15, creatinine is 0.74, glucose 118. Serum osmolality is 255. Calcium is 8.4. White count is 5, H&H 10.5 and 32.1, platelet count 238. Tox screen is negative. Urine osmolality 667. INR is 1. Urine culture was suggestive of colonization. IMPRESSION AND PLAN: Hyponatremia. 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 Was just recently started on 2 psych meds of Trileptal and Lexapro. We will stop the Lexapro now since it was just recently started and we will leave the Trileptal in place. For now, on fluid restriction and I have started the patient on salt tablets 1 gram b.i.d. and Lasix 20 mg a day. Urine osm in 600s and repeating the serum sodium now to see if it is getting better with the fluid restriction. May need to stop the Trileptal completely as well but would like to first see if we can correct the sodium through salt tablets and Lasix and fluid restriction. TSH was normal at 1.82. No role for 3% normal saline since no acute mental status changes. Appreciate consultation. DREW
[2017-09-29 19:10] VITALS: BP 153/67; PULSE 65; TEMP 36.6; O2SAT 94
[2017-09-29 22:02] LABS: BUN/CREATININE RATIO 19.7 (10-20); CALCIUM 8.5 mg/dl (8.5-10.1); CREATININE 0.88 mg/dl (0.60-1.20); POTASSIUM 4.1 mmol/L (3.5-5.1)
[2017-09-29 23:56] VITALS: BP 129/61; PULSE 62; TEMP 36.7; O2SAT 95
[2017-09-30] VITALS (7 sets, daily range): BP systolic 95–121; BP diastolic 50–64; PULSE 58–67; TEMP 36.7–37; O2SAT 94–100
[2017-09-30 06:23] LABS: HEMATOCRIT 31.3 % (37-47); MEAN CELL VOLUME 85.1 fL (80-100); MEAN CORPUSCULAR HEMOGLOBIN 29.1 pg (25-34); MEAN CORPUSCULAR HGB CONC 34.2 g/dl (32-36); MEAN PLATELET VOLUME 8.7 fL (7.4-10.4); PLATELET COUNT 245 K/uL (130-400); RED BLOOD COUNT 3.68 M/uL (4.2-5.4); WHITE BLOOD COUNT 4.95 K/uL (4.8-10.8)
[2017-09-30 06:55] LABS: BUN/CREATININE RATIO 19.9 (10-20); CALCIUM 8.6 mg/dl (8.5-10.1); CREATININE 0.78 mg/dl (0.60-1.20); POTASSIUM 4.3 mmol/L (3.5-5.1)
[2017-09-30] MEDS: FUROSEMIDE 20 MG TAB PO SCH (08:12)
[2017-09-30] MEDS: ASPIRIN 81 MG ECTAB PO SCH (08:12)
[2017-09-30] MEDS: ATORVASTATIN 10 MG TAB PO SCH (08:12)
[2017-09-30] MEDS: SODIUM CHLORIDE 1 GM TAB PO SCH ×2 (08:12→20:45)
[2017-09-30] MEDS: LISINOPRIL 5 MG TAB PO SCH (08:13)
[2017-09-30] MEDS: ENOXAPARIN 40 MG/0.4 ML SYR SQ SCH (08:13)
--- NOTE | 2017-09-30 16:23 | Progress Note ---
Medicine Progress Note Date & Time of Visit: Sep 30, 2017 at 16:18. Subjective Pt was seen and examined Lying in bed with no distress with daughter at bedside Updated provide to Daughter Sheela Pt said that she feels fine Denies any chest pain, palpitation, dizziness and sob Objective Last 8 Hrs Date Time Temp Pulse Resp B/P (MAP) Pulse Ox O2 Delivery O2 Flow Rate FiO2 09/30/17 15:39 36.7 61 16 95/50 (65) 95 Room Air 09/30/17 12:00 Room Air 09/30/17 11:29 36.7 63 18 111/50 (70) 94 Room Air Physical Exam: General- No acute distress Head- atraumatic Eyes- PERRL, EOMI ENT- oropharynx clear Neck- supple, no JVD Lungs- No wheezing Heart- regular rhythm Abdomen- normal bowel sounds, soft Extremities-no calf tenderness Neuro- alert, oriented, PERRL, EOMI Skin- warm & dry Laboratory Results: Last 24 Hours Test 09/29/17 21:12 09/30/17 05:45 Sodium Level 125 mmol/L 124 mmol/L Potassium Level 4.1 mmol/L 4.3 mmol/L Chloride Level 92 mmol/L 93 mmol/L Carbon Dioxide Level 26 mmol/L 27 mmol/L Anion Gap 7.0 mmol/L 4.0 mmol/L Blood Urea Nitrogen 17 mg/dl 15 mg/dl Creatinine 0.88 mg/dl 0.78 mg/dl Est Creatinine Clear Calc Drug Dose 37.9 ml/min 42.8 ml/min Estimated GFR () 69.0 79.8 Estimated GFR (Non- 59.5 68.8 BUN/Creatinine Ratio 19.7 19.9 Random Glucose 92 mg/dl 83 mg/dl Calcium Level 8.5 mg/dl 8.6 mg/dl White Blood Count 4.95 K/uL Red Blood Count 3.68 M/uL Hemoglobin 10.7 g/dL Hematocrit 31.3 % Mean Corpuscular Volume 85.1 fL Mean Corpuscular Hemoglobin 29.1 pg Mean Corpuscular Hemoglobin Concent 34.2 g/dl RDW Standard Deviation 40.4 fL RDW Coefficient of Variation 13.1 % Platelet Count 245 K/uL Mean Platelet Volume 8.7 fL Assessment & Plan ELEVATED TROPONIN Elevated troponin on admission NO ischemic changes on EKG Tropon 0.169 -> 0.498 -> 0.386 Cardiology on board recommended conservative management Continue asa and statin Stable ECHO showed * The left ventricle is hyperdynamic. * Ejection Fraction = >70 % * The left ventricular wall motion is normal. * Aortic valve sclerosis mild, without significant aortic valvular stenosis. * There is trace mitral regurgitation. * Grade I diastolic dysfunction, (abnormal relaxation pattern). DELUSIONS, AGGRESSIONS, HX OF DEMENTIA Clinically improved Lexapro 5mg starting yesterday by psych case discussed with Psych that recommended to continue Lexapro 5mg can be titrated by provider at [facility] if needed OK with psych to d/c Trileptal due to hyponatremia, no need to taper Psych does not want to start on any Benzo due to her age and can worsening the confusion can be titrated by provider at [facility] Daughter would like Neuro to see pt while she is in the hospital Case discussed with neurology Dr. Betancur recommended for pt to be seen as an outpatient once discharge Pt is well know to Dr. 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 Low Na osmolarity Na 124 today Psych OK to d/c Trileptalr Continue fluid restriction Encourage pt to eat her food Nephrology on board Continue salt tab continue monitor BMP DYSLIPIDEMIA On statin DVT PROPHYLAXIS On SCDs CODE STATUS DNR DISPOSITION Plan to go back to [facility] once medically stable Consultants: cardio psych Current Inpatient Medications: Current Inpatient Medications Medications (Trade) Dose Ordered Sig/Portia Route Start Time Stop Time Status Last Admin Dose Admin Acetaminophen (Tylenol Tab) 650 mg Q4H PRN PO 09/26/17 18:00 10/26/17 17:59 Ondansetron HCl (Zofran Inj) 4 mg Q6H PRN IV 09/26/17 18:00 10/26/17 17:59 Aspirin (Ecotrin Tab) 81 mg QAM PO 09/27/17 09:00 10/27/17 08:59 09/30/17 08:12 81 MG Atorvastatin Calcium (Lipitor Tab) 10 mg DAILY PO 09/27/17 09:00 10/27/17 08:59 09/30/17 08:12 10 MG Lisinopril (Zestril Tab) 5 mg DAILY PO 09/27/17 09:00 10/27/17 08:59 12/8/17 08:13 5 MG Miscellaneous (Iv Fluids Completed) 1 ea PRN PRN N/A 09/26/17 21:15 09/26/18 21:14 Enoxaparin Sodium (Lovenox Inj) 40 mg QAM SQ 09/27/17 09:00 10/27/17 08:59 09/30/17 08:13 40 MG Sodium Chloride (Sodium Chloride Tab) 1 gm BID PO 09/29/17 16:30 10/29/17 16:29 09/30/17 08:12 1 GM Furosemide (Lasix Tab) 20 mg QAM PO 09/29/17 16:30 10/29/17 16:29 09/30/17 08:12 20 MG
--- NOTE | 2017-09-30 16:59 | Nephrology Progress Note ---
Nephrology Progress Note Date of Service: Sep 30, 2017. Subjective 87 yo female with hyponatremia likely from meds and improving on salt tabs, fluid restriction and lasix. pt doing well. concerned about her low blood pressures. although not lightheaded. Objective Date Time Temp Pulse Resp B/P (MAP) Pulse Ox O2 Delivery O2 Flow Rate FiO2 09/30/17 15:39 36.7 61 16 95/50 (65) 95 Room Air 09/30/17 12:00 Room Air 09/30/17 11:29 36.7 63 18 111/50 (70) 94 Room Air 09/30/17 08:00 Room Air 09/30/17 07:56 36.8 58 18 109/57 (74) 94 09/30/17 07:48 37.0 67 16 104/56 (72) 100 Room Air 09/30/17 04:35 36.7 61 16 121/64 (83) 95 09/30/17 04:00 Room Air 09/29/17 23:59 Room Air 09/29/17 23:56 36.7 62 20 129/61 (83) 95 Room Air 09/29/17 20:00 Room Air 09/29/17 19:10 36.6 65 16 153/67 (95) 94 Room Air 65 Physical Exam: General-aaox2 Eyes-no scleral icterus ENT-mmm Neck-supple Lungs-cta Heart-rrr Abdomen-bs+ s/nt/nd Extremities-no c/c/e Neuro-nonfocal with poor memory Current Inpatient Medications Medications (Trade) Dose Ordered Sig/Portia Route Start Time Stop Time Status Last Admin Dose Admin Acetaminophen (Tylenol Tab) 650 mg Q4H PRN PO 09/26/17 18:00 10/26/17 17:59 Ondansetron HCl (Zofran Inj) 4 mg Q6H PRN IV 09/26/17 18:00 10/26/17 17:59 Aspirin (Ecotrin Tab) 81 mg QAM PO 09/27/17 09:00 10/27/17 08:59 09/30/17 08:12 81 MG Atorvastatin Calcium (Lipitor Tab) 10 mg DAILY PO 09/27/17 09:00 10/27/17 08:59 09/30/17 08:12 10 MG Lisinopril (Zestril Tab) 5 mg DAILY PO 09/27/17 09:00 10/27/17 08:59 09/30/17 08:13 5 MG Miscellaneous (Iv Fluids Completed) 1 ea PRN PRN N/A 09/26/17 21:15 09/26/18 21:14 Enoxaparin Sodium (Lovenox Inj) 40 mg QAM SQ 09/27/17 09:00 10/27/17 08:59 09/30/17 08:13 40 MG Sodium Chloride (Sodium Chloride Tab) 1 gm BID PO 09/29/17 16:30 10/29/17 16:29 09/30/17 08:12 1 GM Furosemide (Lasix Tab) 20 mg QAM PO 09/29/17 16:30 10/29/17 16:29 09/30/17 08:12 20 MG Last 24 Hours Test 09/29/17 21:12 09/30/17 05:45 09/30/17 16:55 Sodium Level 125 mmol/L 124 mmol/L Potassium Level 4.1 mmol/L 4.3 mmol/L Chloride Level 92 mmol/L 93 mmol/L Carbon Dioxide Level 26 mmol/L 27 mmol/L Anion Gap 7.0 mmol/L 4.0 mmol/L Blood Urea Nitrogen 17 mg/dl 15 mg/dl Creatinine 0.88 mg/dl 0.78 mg/dl Est Creatinine Clear Calc Drug Dose 37.9 ml/min 42.8 ml/min Estimated GFR () 69.0 79.8 Estimated GFR (Non- 59.5 68.8 BUN/Creatinine Ratio 19.7 19.9 Random Glucose 92 mg/dl 83 mg/dl Calcium Level 8.5 mg/dl 8.6 mg/dl White Blood Count 4.95 K/uL Red Blood Count 3.68 M/uL Hemoglobin 10.7 g/dL Hematocrit 31.3 % Mean Corpuscular Volume 85.1 fL Mean Corpuscular Hemoglobin 29.1 pg Mean Corpuscular Hemoglobin Concent 34.2 g/dl RDW Standard Deviation 40.4 fL RDW Coefficient of Variation 13.1 % Platelet Count 245 K/uL Mean Platelet Volume 8.7 fL Assessment & Plan hyponatremia-currently on salt tabs, fluid restriction and lasix. sodium levels are improving. to recheck bmp again now. bp is low. to stop the lisinopril. if continues to be low, will need to stop the lasix. not symptomatic.
[2017-09-30 17:34] LABS: BUN/CREATININE RATIO 21.9 (10-20); CALCIUM 8.7 mg/dl (8.5-10.1); CREATININE 0.92 mg/dl (0.60-1.20); POTASSIUM 4.1 mmol/L (3.5-5.1)
[2017-10-01 00:05] VITALS: BP 99/61; PULSE 56; TEMP 36.6; O2SAT 96
[2017-10-01 03:37] VITALS: BP 93/58; PULSE 60; TEMP 36.7; O2SAT 95
[2017-10-01 07:06] LABS: CREATININE 0.89 mg/dl (0.60-1.20); POTASSIUM 4.4 mmol/L (3.5-5.1)
[2017-10-01] MEDS: SODIUM CHLORIDE 1 GM TAB PO SCH (08:27)
[2017-10-01] MEDS: ATORVASTATIN 10 MG TAB PO SCH (08:27)
[2017-10-01] MEDS: ASPIRIN 81 MG ECTAB PO SCH (08:27)
[2017-10-01] MEDS: ENOXAPARIN 40 MG/0.4 ML SYR SQ SCH (08:28)
[2017-10-01] MEDS: FUROSEMIDE 20 MG TAB PO SCH (08:28)
[2017-10-01 08:42] VITALS: BP 106/63; PULSE 63; TEMP 36.7; O2SAT 95
--- NOTE | 2017-10-01 12:23 | Nephrology Progress Note ---
Nephrology Progress Note Date of Service: Oct 01, 2017. Subjective seen on rounds at 0915 approx; no n/v, no dyspnea or uncontrolled thirst. some anxiety, some impaired memory about events leading to hospital and about outpt living situation. states she has never been a big eater Objective Date Time Temp Pulse Resp B/P (MAP) Pulse Ox O2 Delivery O2 Flow Rate FiO2 10/01/17 07:35 Room Air 10/01/17 04:00 Room Air 10/01/17 03:37 36.7 60 16 93/58 (70) 95 Room Air 10/01/17 00:05 36.6 56 16 99/61 (74) 96 Room Air 10/01/17 00:00 Room Air 09/30/17 20:00 96 Room Air 09/30/17 16:00 95 Room Air 09/30/17 15:39 36.7 61 16 95/50 (65) 95 Room Air 09/30/17 12:00 Room Air 09/30/17 11:29 36.7 63 18 111/50 (70) 94 Room Air Physical Exam: General-aaox2, on ra, cachectic Eyes-no scleral icterus ENT-mmm Neck-supple Lungs-cta but very diminished Heart-rrr Abdomen-bs+ s/nt/nd w/o beck Extremities-no c/c/e Neuro-rodriguez, fluent speech with poor memory Current Inpatient Medications Medications (Trade) Dose Ordered Sig/Portia Route Start Time Stop Time Status Last Admin Dose Admin Acetaminophen (Tylenol Tab) 650 mg Q4H PRN PO 09/26/17 18:00 10/26/17 17:59 Ondansetron HCl (Zofran Inj) 4 mg Q6H PRN IV 09/26/17 18:00 10/26/17 17:59 Aspirin (Ecotrin Tab) 81 mg QAM PO 09/27/17 09:00 10/27/17 08:59 09/30/17 08:12 81 MG Atorvastatin Calcium (Lipitor Tab) 10 mg DAILY PO 09/27/17 09:00 10/27/17 08:59 09/30/17 08:12 10 MG Miscellaneous (Iv Fluids Completed) 1 ea PRN PRN N/A 09/26/17 21:15 09/26/18 21:14 Enoxaparin Sodium (Lovenox Inj) 40 mg QAM SQ 09/27/17 09:00 10/27/17 08:59 09/30/17 08:13 40 MG Sodium Chloride (Sodium Chloride Tab) 1 gm BID PO 09/29/17 16:30 10/29/17 16:29 09/30/17 20:45 1 GM Furosemide (Lasix Tab) 20 mg QAM PO 09/29/17 16:30 10/29/17 16:29 09/30/17 08:12 20 MG Last 24 Hours Test 09/30/17 17:07 10/01/17 06:09 Sodium Level 124 mmol/L 129 mmol/L Potassium Level 4.1 mmol/L 4.4 mmol/L Chloride Level 92 mmol/L 94 mmol/L Carbon Dioxide Level 26 mmol/L 28 mmol/L Anion Gap 6.0 mmol/L 7.0 mmol/L Blood Urea Nitrogen 20 mg/dl 20 mg/dl Creatinine 0.92 mg/dl 0.89 mg/dl Est Creatinine Clear Calc Drug Dose 35.2 ml/min 36.4 ml/min Estimated GFR () 65.3 68.0 Estimated GFR (Non- 56.4 58.7 BUN/Creatinine Ratio 21.9 22.0 Random Glucose 96 mg/dl 86 mg/dl Calcium Level 8.7 mg/dl 9.0 mg/dl Assessment & Plan 87 yo female with hyponatremia likely from meds and improving on salt tabs, fluid restriction and lasix. ongoing low blood pressures. although not lightheaded. hyponatremia-currently on salt tabs, fluid restriction and lasix. sodium levels are improving. goal is to get on regimen least likely to cause complications after hospital d/c -d/c salt tabs this evening; cont lasix -daily bmp ok -cont 1.5L fluid limit bp is low. cont to hold lisinopril; trial low dose lasix and monitor bp carefully. not symptomatic. Appreciate consult; care coordinated w/ dr yepez
--- NOTE | 2017-10-01 13:48 | Progress Note ---
Medicine Progress Note Date & Time of Visit: Oct 01, 2017 at 13:44. Subjective Pt was seen and examined Lying in bed with no distress Pt said that she feels fine Denies any chest pain, palpitation, dizziness and SOB Objective Last 8 Hrs Date Time Temp Pulse Resp B/P (MAP) Pulse Ox O2 Delivery O2 Flow Rate FiO2 10/01/17 08:42 36.7 63 18 106/63 (77) 95 Room Air 10/01/17 07:35 Room Air Physical Exam: General- No acute distress Head- atraumatic Eyes- PERRL, EOMI ENT- oropharynx clear Neck- supple, no JVD Lungs- No wheezing Heart- regular rhythm Abdomen- normal bowel sounds, soft Extremities-no calf tenderness Neuro- alert, oriented, PERRL, EOMI Skin- warm & dry Laboratory Results: Last 24 Hours Test 09/30/17 17:07 10/01/17 06:09 Sodium Level 124 mmol/L 129 mmol/L Potassium Level 4.1 mmol/L 4.4 mmol/L Chloride Level 92 mmol/L 94 mmol/L Carbon Dioxide Level 26 mmol/L 28 mmol/L Anion Gap 6.0 mmol/L 7.0 mmol/L Blood Urea Nitrogen 20 mg/dl 20 mg/dl Creatinine 0.92 mg/dl 0.89 mg/dl Est Creatinine Clear Calc Drug Dose 35.2 ml/min 36.4 ml/min Estimated GFR () 65.3 68.0 Estimated GFR (Non- 56.4 58.7 BUN/Creatinine Ratio 21.9 22.0 Random Glucose 96 mg/dl 86 mg/dl Calcium Level 8.7 mg/dl 9.0 mg/dl Assessment & Plan ELEVATED TROPONIN Elevated troponin on admission NO ischemic changes on EKG Tropon 0.169 -> 0.498 -> 0.386 Cardiology on board recommended conservative management Continue asa and statin Stable ECHO showed * The left ventricle is hyperdynamic. * Ejection Fraction = >70 % * The left ventricular wall motion is normal. * Aortic valve sclerosis mild, without significant aortic valvular stenosis. * There is trace mitral regurgitation. * Grade I diastolic dysfunction, (abnormal relaxation pattern). DELUSIONS, AGGRESSIONS, HX OF DEMENTIA Clinically improved Lexapro 5mg starting yesterday by psych case discussed with Psych that recommended to continue Lexapro 5mg can be titrated by provider at [facility] if needed OK with psych to d/c Trileptal due to hyponatremia, no need to taper Psych does not want to start on any Benzo due to her age and can worsening the confusion can be titrated by provider at [facility] Daughter would like Neuro to see pt while she is in the hospital Case discussed with neurology Dr. Betancur recommended for pt to be seen as an outpatient once discharge Pt is well know to Dr. 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 Aleman Continue lasix 20mg daily Will D/C salt tab continue monitor BMP DYSLIPIDEMIA On statin DVT PROPHYLAXIS On SCDs CODE STATUS DNR DISPOSITION Plan to go back to [facility] possible tomorrow once medically stable Consultants: cardio psych Nephro Current Inpatient Medications: Current Inpatient Medications Medications (Trade) Dose Ordered Sig/Portia Route Start Time Stop Time Status Last Admin Dose Admin Acetaminophen (Tylenol Tab) 650 mg Q4H PRN PO 09/26/17 18:00 10/26/17 17:59 Ondansetron HCl (Zofran Inj) 4 mg Q6H PRN IV 09/26/17 18:00 10/26/17 17:59 Aspirin (Ecotrin Tab) 81 mg QAM PO 09/27/17 09:00 10/27/17 08:59 10/01/17 08:27 81 MG Atorvastatin Calcium (Lipitor Tab) 10 mg DAILY PO 09/27/17 09:00 10/27/17 08:59 10/01/17 08:27 10 MG Miscellaneous (Iv Fluids Completed) 1 ea PRN PRN N/A 09/26/17 21:15 09/26/18 21:14 Enoxaparin Sodium (Lovenox Inj) 40 mg QAM SQ 09/27/17 09:00 10/27/17 08:59 10/01/17 08:28 40 MG Sodium Chloride (Sodium Chloride Tab) 1 gm BID PO 09/29/17 16:30 10/29/17 16:29 Future Hold 10/01/17 08:27 1 GM Furosemide (Lasix Tab) 20 mg QAM PO 09/29/17 16:30 10/29/17 16:29 10/01/17 08:28 20 MG
[2017-10-01 15:45] VITALS: BP 120/64; PULSE 67; TEMP 37; O2SAT 96
[2017-10-01] MEDS ORDERED: ESCITALOPRAM OXALATE 10 MG TAB PO ONE (16:00)
[2017-10-01 20:05] VITALS: BP 124/59; PULSE 73; TEMP 36.4; O2SAT 94
[2017-10-01] MEDS ORDERED: HEPARIN SOD 5000 UNIT/0.5 ML CARP SQ SCH (21:00)
[2017-10-02 00:25] VITALS: BP 125/64; PULSE 64; TEMP 36.5; O2SAT 95
[2017-10-02 07:10] LABS: CALCIUM 8.6 mg/dl (8.5-10.1); CREATININE 0.79 mg/dl (0.60-1.20); POTASSIUM 4.1 mmol/L (3.5-5.1)
[2017-10-02 07:35] VITALS: BP 120/63; PULSE 64; TEMP 36.8; O2SAT 95
[2017-10-02] MEDS: ASPIRIN 81 MG ECTAB PO SCH (08:15)
[2017-10-02] MEDS: ATORVASTATIN 10 MG TAB PO SCH (08:15)
[2017-10-02] MEDS: FUROSEMIDE 20 MG TAB PO SCH (08:16)
[2017-10-02] MEDS: ENOXAPARIN 40 MG/0.4 ML SYR SQ SCH (08:16)
[2017-10-02] MEDS ORDERED: ESCITALOPRAM OXALATE 10 MG TAB PO SCH (09:00)
--- NOTE | 2017-10-02 13:28 | Progress Note ---
Medicine Progress Note Date & Time of Visit: Oct 02, 2017 at 10:15. Subjective Pt was seen and examined Lying in bed comfortable with no distress Pt said that she had a good night There was no abnormal behavior report in the past few nights Denies any chest pain, palpitation, dizziness and SOB Objective Last 8 Hrs Date Time Temp Pulse Resp B/P (MAP) Pulse Ox O2 Delivery O2 Flow Rate FiO2 10/02/17 07:44 Room Air 10/02/17 07:35 36.8 64 18 120/63 (82) 95 Room Air Physical Exam: General- No acute distress Head- atraumatic Eyes- PERRL, EOMI ENT- oropharynx clear Neck- supple, no JVD Lungs- No wheezing Heart- regular rhythm Abdomen- normal bowel sounds, soft Extremities-no calf tenderness Neuro- alert, oriented, PERRL, EOMI Skin- warm & dry Laboratory Results: Last 24 Hours Test 10/02/17 05:57 Sodium Level 130 mmol/L Potassium Level 4.1 mmol/L Chloride Level 97 mmol/L Carbon Dioxide Level 29 mmol/L Anion Gap 4.0 mmol/L Blood Urea Nitrogen 15 mg/dl Creatinine 0.79 mg/dl Est Creatinine Clear Calc Drug Dose 40.7 ml/min Estimated GFR () 78.6 Estimated GFR (Non- 67.8 BUN/Creatinine Ratio 19.0 Random Glucose 79 mg/dl Calcium Level 8.6 mg/dl Assessment & Plan ELEVATED TROPONIN Elevated troponin on admission NO ischemic changes on EKG Tropon 0.169 -> 0.498 -> 0.386 Cardiology on board recommended conservative management Continue asa and statin Stable ECHO showed * The left ventricle is hyperdynamic. * Ejection Fraction = >70 % * The left ventricular wall motion is normal. * Aortic valve sclerosis mild, without significant aortic valvular stenosis. * There is trace mitral regurgitation. * Grade I diastolic dysfunction, (abnormal relaxation pattern). DELUSIONS, AGGRESSIONS, HX OF DEMENTIA Clinically improved Lexapro 5mg starting yesterday by psych case discussed with Psych that recommended to continue Lexapro 5mg can be titrated by provider at [facility] if needed OK with psych to d/c Trileptal due to hyponatremia, no need to taper Psych does not want to start on any Benzo due to her age and can worsening the confusion can be titrated by provider at [facility] Daughter would like Neuro to see pt while she is in the hospital Case discussed with neurology Dr. Betancur recommended for pt to be seen as an outpatient once discharge Pt is well know to Dr. Hebert and daughter was aware of that No abnormal behavior noted stable ANXIETY Trileptal was discontinued due to Hyponatremia Was starting on a low dose of Lexapro 5 mg, and tolerated well Psych on board recommended to continue Lexapro 5 mg and can be titrate if needed by provider at the facility Due to her age tried to use any benzo with cautious But she responded very well with a low dose of Ativan when she was agitated during her first night in the hospital Since then she has been very stable and did not have any abnormal behavior to require any benzo HTN BP controlled D/C Lisinopril due to low BP since lasix was started On Lasix 20mg daily Continue monitor BP HYPONATREMIA 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 Aleman Continue lasix 20mg daily Will D/C salt tab continue monitor BMP 12/10 Na 130 today Continue lasix 20mg daily Continue 1.5 L fluid restriction case discussed with Nephro Dr. Aleman recommended to check BMP on Tuesday, then weekly for the next 3 weeks If stable no need to follow with nephrology DYSLIPIDEMIA On statin DVT PROPHYLAXIS On SCDs CODE STATUS DNR DISPOSITION Will discharge to [facility] today Consultants: cardio psych Nephro Current Inpatient Medications: Current Inpatient Medications Medications (Trade) Dose Ordered Sig/Portia Route Start Time Stop Time Status Last Admin Dose Admin Acetaminophen (Tylenol Tab) 650 mg Q4H PRN PO 09/26/17 18:00 10/26/17 17:59 Ondansetron HCl (Zofran Inj) 4 mg Q6H PRN IV 09/26/17 18:00 10/26/17 17:59 Aspirin (Ecotrin Tab) 81 mg QAM PO 09/27/17 09:00 10/27/17 08:59 10/02/17 08:15 81 MG Atorvastatin Calcium (Lipitor Tab) 10 mg DAILY PO 09/27/17 09:00 10/27/17 08:59 10/02/17 08:15 10 MG Miscellaneous (Iv Fluids Completed) 1 ea PRN PRN N/A 09/26/17 21:15 09/26/18 21:14 Enoxaparin Sodium (Lovenox Inj) 40 mg QAM SQ 09/27/17 09:00 10/27/17 08:59 10/02/17 08:16 40 MG Sodium Chloride (Sodium Chloride Tab) 1 gm BID PO 09/29/17 16:30 10/29/17 16:29 Future Hold 10/01/17 08:27 1 GM Furosemide (Lasix Tab) 20 mg QAM PO 09/29/17 16:30 10/29/17 16:29 10/02/17 08:16 20 MG Escitalopram Oxalate (Lexapro Tab) 5 mg QAM PO 10/02/17 09:00 11/01/17 08:59 10/02/17 08:14 5 MG
[2017-10-02] MEDS ORDERED: ASPEC81 PO (13:38)
[2017-10-02] MEDS ORDERED: LSX20 PO (13:38)
[2017-10-02] MEDS ORDERED: LXP10 PO (13:38)
--- NOTE | 2017-10-02 14:00 | Discharge Instructions ---
Discharge Instructions Date of Service Oct 02, 2017. Admission Reason for Admission: Elevated Troponin Discharge Discharge Diagnosis / Problem: Dementia, Elevated Troponin, Hyponatremia Discharge Goals Goal(s): Decrease discomfort, Improve function, Improve disease control Activity Recommendations Activity Limitations: resume your previous activity (as tolerated) . Instructions / Follow-Up Instructions / Follow-Up Please follow up with your primary care provider Dr. Frederick ( Dr. Frederick's office will call you for an appointment within 1 week) (Please call if you don't hear from the office for the appointment by Tuesday) Follow up with your Neurology Dr. Hebert ( Please call to schedule for the follow up) Continue Lexapro 5 mg daily (your physician will titrate it up if needed in the next few weeks) Hold Lisinopril for now because blood pressure has been well controlled off lisinopril Continue monitor blood pressure and if starts to elevate, lisinopril can resume at a low dose Continue Lasix 20mg daily to help to maintain the Sodium Check BMP on Tuesday to monitor the sodium, then check BMP weekly for the next 3 weeks Continue fluid restriction to 1.5 L daily Follow up with Nephrology as needed if sodium does not improve. Fall precaution Current Hospital Diet Patient's current hospital diet: Regular Diet Discharge Diet Recommended Diet: Regular Diet Pending Studies Studies pending at discharge: no Medical Emergencies . Who to Call and When: Medical Emergencies: If at any time you feel your situation is an emergency, please call 911 immediately. . Non-Emergent Contact Non-Emergency issues call your: Primary Care Provider Call Non-Emergent contact if: you have any medication questions . . "Provider Documentation" section prepared by Hansa Johnson. . VTE Core Measure Inpt VTE Proph given/why not?: Enoxaparin (Lovenox)SQ
[2017-10-02 14:02] VITALS: BP 120/63; PULSE 64; TEMP 36.8; O2SAT 95
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
== END 2017-10-02 15:00 | disposition home or self-care (01) ==
LOC: EDBD 13:24 → C.EDA 13:26 → ENRESERV 16:38 → C.MED 17:54 → EDBEDREQ 17:59 → C.MED 18:13
PROVIDERS: ADMIT Hospitalist; ATTEND Internal Medicine
DX: R79.89 Other specified abnormal findings of blood chemistry (principal); G30.9 Alzheimer's disease, unspecified; F02.81 Dementia in other diseases classified elsewhere, unspecified severity, with behavioral disturbance; E87.1 Hypo-osmolality and hyponatremia; I10 Essential (primary) hypertension; E78.5 Hyperlipidemia, unspecified; F41.9 Anxiety disorder, unspecified; Z79.899 Other long term (current) drug therapy